=== PATIENT | female | born 1950 | race American Indian/Alaskan Native ===

== ENCOUNTER 2020-12-20 11:27 | Emergency (ER) | payer MEDICARE ==
[2020-12-20] MEDS ORDERED: diazePAM 5 MG TAB PO ONE (12:09)
[2020-12-20] MEDS ORDERED: IBUPROFEN 800 MG TAB PO ONE (12:09)
[2020-12-20] MEDS ORDERED: dexAMETHasone 20 MG/5 ML VIAL IM ONE (12:14)
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
[2020-12-20 13:01] LABS: Basophils # (Auto) 0.1 K/mm3 (0.0-0.1); Basophils % (Auto) 0.6 % (0.0-1.8); Eosinophils # (Auto) 0.1 K/mm3 (0.0-0.4); Eosinophils % (Auto) 0.6 % (0.0-4.3); Hematocrit 39.4 % (30.3-42.9); Hemoglobin 13.2 gm/dl (10.1-14.3); Lymphocytes # (Auto) 1.6 K/mm3 (1.2-5.4); Lymphocytes % (Auto) 13.5 % (13.4-35.0); Mean Corpuscular HGB Conc 34 % (30-34); Mean Corpuscular Volume 87 fl (79-97); Monocytes # (Auto) 0.6 K/mm3 (0.0-0.8); Platelet Count 221 K/mm3 (140-440); Red Blood Count 4.51 M/mm3 (3.65-5.03); Red Cell Distribution Width 14.4 % (13.2-15.2)
[2020-12-20 13:19] LABS: Alanine Aminotransferase 11 units/L (7-56); Albumin 3.7 g/dL (3.9-5); Blood Urea Nitrogen 16 mg/dL (7-17); Calcium 9.3 mg/dL (8.4-10.2); Hemolysis Index 15
[2020-12-20 14:01] LABS: BUN/Creatinine Ratio 27
[2020-12-20] MEDS ORDERED: INSULIN NPH/REGULAR 70/30 INJ SUB-Q NR (14:20)
--- NOTE | 2020-12-20 14:24 | Cat Scan Report ---
CT LUMBAR SPINE WITHOUT CONTRAST INDICATION: Severe back pain. TECHNIQUE: Axial imaging performed through the lumbar spine without the use of contrast. Sagittal a nd coronal reconstructed images were also reviewed. All CT scans at this location are performed usin g CT dose reduction for ALARA by means of automated exposure control. COMPARISON: None FINDINGS: Alignment: There is 3 mm anterolisthesis of L4 with respect to L5 on the sagittal images. The remain ing lumbar vertebra are normal in alignment. Bones: There is no acute osseous abnormality. Previous decompressive laminectomies at L4 are noted. Moderate to severe circumferential bulging discs are identified at L3-4 and L4-5. Moderate facet art hropathy are also identified at these levels. Moderate to severe central canal narrowing is identifie d at L3-4 and to a lesser extent L4-5. Bilateral neural foraminal narrowing at L4-5 and L5-S1 is jayce mated at 50%. The remaining levels are unremarkable. Soft tissues: Paraspinal soft tissues are within normal limits. Moderate to severe uterine fibroid d isease is partially imaged. IMPRESSION: No acute osseous injury is appreciated. Moderate to severe lumbar spondylosis is identified which appears most pronounced at L3-4. If radicul opathy is present, consider further evaluation with MRI. Signer Name: Kory Umanzor Jr, MD Signed: 12/20/2020 2:20 PM Workstation Name: [id number]
[2020-12-20 16:00] LABS: Bilirubin,Urine NEG (Negative); Blood,Urine SM (Negative); Color,Urine Yellow (Yellow); Mucus,Urine FEW /HPF; Urobilinogen,Urine < 2.0 mg/dL (<2.0); WBC,Urine < 1.0 /HPF (0.0-6.0)
[2020-12-20] MEDS ORDERED: oxyCODONE ER 10 MG TAB PO ONE (16:00)
[2020-12-20 16:48] VITALS: BP 156/60
== END 2020-12-20 17:00 | disposition home or self-care (01) ==
LOC: ED 11:27
DX: M54.16 Radiculopathy, lumbar region (principal); E11.65 Type 2 diabetes mellitus with hyperglycemia; M19.90 Unspecified osteoarthritis, unspecified site; Z79.899 Other long term (current) drug therapy
CPT/HCPCS: 36415; 72131; 80053; 81001; 82962; 85025; 96372; 99284; J1100; J1815